=== PATIENT | female | born 1975 | race Caucasian/White ===

== ENCOUNTER 2019-05-11 11:34 | Emergency (ER) | payer OTHER ==
[2019-05-11] MEDS ORDERED: KETOROLAC TROMETHAMINE INJ/PF 30 MG/1 ML SDV IM ONE (12:03)
[2019-05-11] MEDS ORDERED: ONDANSETRON 4 MG TAB.RAPDIS PO ONE (12:03)
--- NOTE | 2019-05-11 12:03 | ER Document Report ---
ED Medical Screen (RME) - General Chief Complaint: Abdominal Pain Stated Complaint: ABDOMINAL PAIN Time Seen by Provider: 05/11/19 11:56 Primary Care Provider: KERWIN BROWN FNP-C [Primary Care Provider] - Follow up as needed Mode of Arrival: Ambulatory Notes: 43-year-old female presented to ED complaining of left flank pain. She states she had the same pain about couple months ago and they told her that it was nothing to be concerned about because it went away after several days. She states it is back and worse this time than before. She states she is alert oriented respirations regular nonlabored she does not have any symptoms with her urine the pain is on her left flank and is painful to move. She is alert oriented respirations regular nonlabored speaking in full sentences. She does have tenderness to the upper to mid abdomen and around to the flank area. We will get blood urine and CT and treat her with some Toradol and Zofran at this time. I have greeted and performed a rapid initial assessment of this patient. A comprehensive ED assessment and evaluation of the patient, analysis of test results and completion of medical decision making process will be conducted by an additional ED providers. TRAVEL OUTSIDE OF THE [place] IN LAST 30 DAYS: No - Related Data Allergies/Adverse Reactions: No Known Allergies Allergy (Unverified 08/31/13 15:10) Past Medical History - Social History Frequency of alcohol use: Rare Drug Abuse: None - Immunizations Hx Diphtheria, Pertussis, Tetanus Vaccination: Yes - received this Physical Exam - Vital signs Vitals: Temp Pulse Resp BP Pulse Ox 98.3 F 99 18 116/76 100 05/11/19 11:40 05/11/19 11:40 05/11/19 11:40 05/11/19 11:40 05/11/19 11:40 Course - Vital Signs Vital signs: Temp Pulse Resp BP Pulse Ox 98.3 F 99 18 116/76 100 05/11/19 11:40 05/11/19 11:40 05/11/19 11:40 05/11/19 11:40 05/11/19 11:40 Doctor's Discharge - Discharge Referrals: KERWIN BROWN FNP-C [Primary Care Provider] - Follow up as needed
[2019-05-11 12:54] LABS: ABSOLUTE NEUT (AUTO) 11.4 10^3/uL (1.7-8.2); BASOPHILS % (AUTO) 0.3 % (0-2); EOSINOPHILS % (AUTO) 0.4 % (0-6); HEMATOCRIT 43.4 % (36.0-47.0); HEMOGLOBIN 14.9 g/dL (12.0-15.5); LYMPHOCYTES % (AUTO) 7.3 % (13-45); MEAN CORPUSCULAR HEMOGLOBIN 31.6 pg (27.0-33.4); MEAN CORPUSCULAR HGB CONC 34.4 g/dL (32.0-36.0); MEAN CORPUSCULAR VOLUME 92 fl (80-97); MONOCYTES % (AUTO) 7.6 % (3-13); PLATELET COUNT 237 10^3/uL (150-450); RED BLOOD COUNT 4.72 10^6/uL (3.72-5.28); RED CELL DISTRIBUTION WIDTH 13.3 % (11.5-14.0); SEGMENTED NEUTROPHILS % (AUTO) 84.4 % (42-78); TOTAL CELLS COUNTED % (AUTO) 100 %; WHITE BLOOD COUNT 13.5 10^3/uL (4.0-10.5)
--- NOTE | 2019-05-11 12:57 | RADIOLOGY REPORT (SQ) ---
EXAM DESCRIPTION: CT ABD/PELVIS NO ORAL OR IV COMPLETED DATE/TIME: 05/11/2019 12:38 pm REASON FOR STUDY: left flank pain COMPARISON: None. TECHNIQUE: CT scan of the abdomen and pelvis performed without intravenous or oral contrast. Images reviewed with lung, soft tissue, and bone windows. Reconstructed coronal and sagittal MPR images revi ewed. All images stored on PACS. All CT scanners at this facility use dose modulation, iterative reconstruction, and/or weight based d osing when appropriate to reduce radiation dose to as low as reasonably achievable (ALARA). [facility]: Dose Right [facility]: CareDose [facility]: Dose Right [facility]: Teradose 4D [facility]: Smart Answer.To RADIATION DOSE: CT Rad equipment meets quality standard of care and radiation dose reduction techniq ues were employed. CTDIvol: 9.8 mGy. DLP: 534 mGy-cm.mGy. LIMITATIONS: None. FINDINGS: LOWER CHEST: No significant findings. No nodules or infiltrates. NON-CONTRASTED LIVER, SPLEEN, ADRENALS: Evaluation limited by lack of IV contrast. No identified sign ificant masses. PANCREAS: No masses. No peripancreatic inflammatory changes. GALLBLADDER: No identified stones by CT criteria. No inflammatory changes to suggest cholecystitis. RIGHT KIDNEY AND URETER: No solid masses. No significant calcification. No hydronephrosis or hydroure ter. LEFT KIDNEY AND URETER: No solid masses. No significant calcification. No hydronephrosis or hydrouret er. AORTA AND RETROPERITONEUM: No aneurysm. No retroperitoneal masses or adenopathy. BOWEL AND PERITONEAL CAVITY: Pancolonic diverticulosis with thickening and fat stranding about the di stal portion of the descending colon (series 3, image 57, series 601, image 28). No free fluid. APPENDIX: Normal. PELVIS, BLADDER, AND ABDOMINAL WALL:No abnormal masses. No free fluid. Bladder normal. BONES: No significant findings. OTHER: No other significant finding. IMPRESSION: Pancolonic diverticulosis with thickening and fat stranding about the distal portion of the descending colon (series 3, image 57, series 601, image 28). Findings are consistent with acute diverticulitis. There is no evidence of perforation or abscess. Consider colonoscopy following res olution of clinical symptoms to exclude underlying malignancy. TECHNICAL DOCUMENTATION: JOB ID: [id number] Quality ID # [id number]: Final reports with documentation of one or more dose reduction techniques (e.g., Au tomated exposure control, adjustment of the mA and/or kV according to patient size, use of iterative reconstruction technique) 2010 [employer]- All Rights Reserved Reading location - IP/workstation name: [id number]
--- NOTE | 2019-05-11 13:03 | ER Document Report ---
ED GI/ - General Chief Complaint: Abdominal Pain Stated Complaint: ABDOMINAL PAIN Time Seen by Provider: 05/11/19 11:56 Primary Care Provider: KERWIN BROWN FNP-C [Primary Care Provider] - Follow up as needed Mode of Arrival: Ambulatory Notes: CHIEF COMPLAINT: Left side abdominal pain for 3 days HPI: 43-year-old female presenting to the emergency department complaining of left-sided abdominal pain progressively worsening over the last 3 days. Slight nausea no vomiting or fever. Has had slight constipation. States mother has a history of diverticulitis she herself has never had diverticulitis. ROS: See HPI - all other systems were reviewed and are otherwise negative Constitutional: no fever Eyes: no drainage, no blurred vision ENT: no runny nose, no sore throat Cardiovascular: no chest pain Resp: no SOB, no cough GI: no vomiting, no diarrhea, + abdominal pain, positive nausea, positive constipation : no dysuria Integumentary: no rash Allergy: no hives Musculoskeletal: no extremity pain or swelling Neurological: no numbness/tingling, no weakness MEDICATIONS: I agree with the patient medications as charted by the RN. ALLERGIES: I agree with the allergies as charted by the RN. PAST MEDICAL HISTORY/PAST SURGICAL HISTORY: Reviewed and agree as charted by RN. SOCIAL HISTORY: Reviewed and agree as charted by RN. FAMILY HISTORY: No significant familial comorbid conditions directly related to patient complaint EXAM: Reviewed vital signs as charted by RN. CONSTITUTIONAL: Alert and oriented and responds appropriately to questions. Well-appearing; well-nourished mild distress secondary to discomfort HEAD: Normocephalic; atraumatic EYES: PERRL; Conjunctivae clear, sclerae non-icteric ENT: normal nose; no rhinorrhea; moist mucous membranes; pharynx without lesions noted, no uvula edema or deviation, no tonsillar hypertrophy, phonation normal NECK: Supple without meningismus; non-tender; no cervical lymphadenopathy, no masses CARD: RRR; no murmurs, no clicks, no rubs, no gallops; symmetric distal pulses RESP: Normal chest excursion without splinting or tachypnea; breath sounds clear and equal bilaterally; no wheezes, no rhonchi, no rales, pulse oximetry pulse oximetry 100% on room air not hypoxic ABD/GI: Normal bowel sounds; non-distended; soft, moderate tenderness through the left lower quadrant on palpation, no rebound, no guarding; no palpable organomegaly or masses. BACK: The back appears normal and is non-tender to palpation, there is no CVA tenderness EXT: Normal ROM in all joints; non-tender to palpation; no cyanosis, no effusions, no edema SKIN: Normal color for age and race; warm; dry; good turgor; no acute lesions noted NEURO: Moves all extremities equally; Motor and sensory function intact PSYCH: The patient's mood and manner are appropriate. Grooming and personal hygiene are appropriate. MDM: 43-year-old female presenting with left-sided abdominal pain progressively worsening over the last 3 days states she had an episode similar to this several months ago that resolved on its own. I suspect likely diverticulitis. Initial screening labs and CT ordered from triage show a mild leukocytosis. CT resulted immediately after I evaluated the patient and she does have diverticulitis without abscess or perforation. I will start her on Cipro Flagyl. Pain medication. She does have a primary care provider for follow-up. TRAVEL OUTSIDE OF THE [place] IN LAST 30 DAYS: No - Related Data Allergies/Adverse Reactions: No Known Allergies Allergy (Unverified 08/31/13 15:10) Past Medical History - Social History Smoking Status: Never Smoker Frequency of alcohol use: Rare Drug Abuse: None Family History: None, Reviewed & Not Pertinent, Other - mother diverticulitis Patient has suicidal ideation: No Patient has homicidal ideation: No - Immunizations Hx Diphtheria, Pertussis, Tetanus Vaccination: Yes - received this Physical Exam - Vital signs Vitals: Temp Pulse Resp BP Pulse Ox 98.3 F 99 18 116/76 100 05/11/19 11:40 05/11/19 11:40 05/11/19 11:40 05/11/19 11:40 05/11/19 11:40 Course - Re-evaluation Re-evalutation: 05/11/19 13:32 Patient shows a mild leukocytosis, no abnormalities in the chemistry, does have moderate WBCs in the urine this may be overflow from her diverticulitis. Patient to be placed on Cipro Flagyl should cover urinary issue. Strict return instructions were discussed with the patient for fever or worsening or uncon trolled pain in the left flank region - Vital Signs Vital signs: Temp Pulse Resp BP Pulse Ox 98.3 F 99 18 116/76 100 05/11/19 11:40 05/11/19 11:40 05/11/19 11:40 05/11/19 11:40 05/11/19 11:40 - Laboratory Result Diagrams: 05/11/19 12:09 05/11/19 12:09 Laboratory results interpreted by me: 05/11/19 05/11/19 05/11/19 12:09 12:09 12:09 WBC 13.5 H Lymph % (Auto) 7.3 L Absolute Neuts (auto) 11.4 H Seg Neutrophils % 84.4 H Total Bilirubin 1.6 H Urine Protein 30 H Urine Ketones TRACE H Urine Blood LARGE H Leukocyte Esterase Rfl MODERATE H Discharge - Discharge Clinical Impression: Acute diverticulitis Condition: Stable Disposition: HOME, SELF-CARE Additional Instructions: Take the medications as prescribed no driving if taking narcotics for pain. If you have fever greater than 101 or have worsening or uncontrolled pain at home return to the emergency department as discussed. It was noted that you have acute diverticulitis on your CT imaging. You will need to follow-up with a foaming machine operator for colonoscopy outpatient Prescriptions: Ciprofloxacin HCl [Cipro 500 mg Tablet] 500 mg PO BID #20 tablet Metronidazole [Flagyl 500 mg Tablet] 500 mg PO TID #30 tablet Oxycodone HCl/Acetaminophen [Percocet 5-325 mg Tablet] 1 - 2 tab PO Q4H PRN #15 tablet PRN Reason: Ondansetron [Zofran Odt 4 mg Tablet] 1 - 2 tab PO Q4H PRN #15 tab.rapdis PRN Reason: For Nausea/Vomiting Referrals: KERWIN BROWN FNP-C [Primary Care Provider] - Follow up as needed DEVAN CARRASCO MD [ACTIVE STAFF] - Follow up as needed
[2019-05-11 13:06] LABS: APPEARANCE,URINE SLIGHTLY-CLOUDY; BILIRUBIN,URINE NEGATIVE (NEGATIVE); COLOR,URINE AMBER; GLUCOSE, URINE NEGATIVE (NEGATIVE); KETONES,URINE TRACE mg/dL (NEGATIVE); PROTEIN,URINE 30 mg/dL (NEGATIVE); URINE SPECIFIC GRAVITY 1.027; UROBILINOGEN,URINE NEGATIVE mg/dL (<2.0)
[2019-05-11] MEDS ORDERED: CIPROFLOXACIN HCL 500 MG TABLET PO ONE (13:09)
[2019-05-11] MEDS ORDERED: METRONIDAZOLE 500 MG TABLET PO ONE (13:09)
[2019-05-11 13:10] LABS: ALBUMIN 4.3 g/dL (3.5-5.0); ALKALINE PHOSPHATASE 43 U/L (38-126); ANION GAP 11 (5-19); ASPARTATE AMINO TRANSFERASE 15 U/L (14-36); BILIRUBIN,DIRECT 0.2 mg/dL (0.0-0.4); BILIRUBIN,TOTAL 1.6 mg/dL (0.2-1.3); BLOOD UREA NITROGEN 11 mg/dL (7-20); CALCIUM 9.7 mg/dL (8.4-10.2); CARBON DIOXIDE 28 mmol/L (22-30); CHLORIDE 100 mmol/L (98-107); GLUCOSE 93 mg/dL (75-110); POTASSIUM 3.9 mmol/L (3.6-5.0); TOTAL PROTEIN 7.7 g/dL (6.3-8.2)
[2019-05-11 13:42] VITALS: BP 103/64
== END 2019-05-11 13:52 | disposition home or self-care (01) ==
LOC: ER 11:34
DX: K57.92 Diverticulitis of intestine, part unspecified, without perforation or abscess without bleeding (principal); R10.9 Unspecified abdominal pain; R11.0 Nausea; K59.00 Constipation, unspecified
CPT/HCPCS: 99284; 96372; 36415; 85025; 80053; 81001; 74176; J1885